=== PATIENT | female | born 1990 | race African-American/Black ===

== ENCOUNTER 2017-10-07 03:41 | Inpatient (IN) | payer SELFPAY ==
[2017-10-07 04:38] VITALS: BP 121/75
[2017-10-07 05:23] LABS: ABS Basophils 0 10^3/ul (0-0.2); ABS Eosinophils 0.1 10^3/ul (0-0.6); ABS Lymphocytes 2.5 10^3/ul (1.0-4.8); ABS Monocytes 1.1 10^3/ul (0-0.8); ABS Neutrophils 8.9 10^3/ul (1.5-7.7); ABS Nucleated RBC 0 10^3/ul; Eosinophil % 0.8 % (0-6); Hematocrit 31 % (35-47); Hemoglobin 10.3 g/dl (12.0-16.0); Lymphocyte % 19.6 % (25-47); Mean Corpuscular HGB Conc 33 g/dl (31-36); Mean Corpuscular Hemoglobin 30 pg (27-31); Mean Corpuscular Volume 91 fL (80-97); Mean Platelet Volume 10.2 um3 (7.4-10.4); Nucleated Red Blood Cells % 0.1; Platelet Count 164 10^3/ul (150-450); Red Blood Count 3.41 10^6/ul (4.00-5.40); Red Cell Distribution Width 13 % (10.5-15); White Blood Count 12.6 10^3/ul (3.5-10.8)
[2017-10-07] MEDS ORDERED: OBEPIDURAL* 250 ML EPIDURAL ONE (05:30)
[2017-10-07] MEDS ORDERED: Penicillin G Potassium IV* 5,000,000 UNITS in NS 0.9% 100 ML* 100 ML IVPB ONE (05:32)
--- NOTE | 2017-10-07 05:38 | HP ---
General Information - Reason for Visit Pt c/o contractions every 3-5min. No LOF or VB. Good FM. Has had care in [place] and then [place] until she moved here 1wk ago. They tried to call several places but weren't able to get an appt scheduled yet. Denies complications with this . - General Information Maternal Age: 27 Grav: 6 Para: 5 SAB: 0 IEA: 0 Estimated Due Date: 10/29/17 Determined By: LMP Maternal Blood Type and Rh: AB Positive - Results this Serology/RPR Result: Non-Reactive Rubella Result: Immune HBsAg Result: Negative HIV Result: Negative GBS Culture Result: Positive Past Medical History Delivery History: See Records Pertinent Past Medical History: Non-Contributory Pertinent Past Surgical History: See Records - Cone biopsy Pertinent Family History: Non-Contributory - Antepartal Records Antepartal Records: Reviewed, Uncomplicated Review of Systems Constitutional: Comfortable CV Complaint: No Respiratory: Shortness of Breath: No Gastrointestinal: No Nausea/Vomiting Genitourinary: No Bleeding, No Leaking Fluid Musculoskeletal: Contractions Movement: Normal Exam Allergies/Adverse Reactions: Allergies No Known Allergies Allergy (Verified 10/07/17 04:38) Vital Signs 10/07/17 04:37 Temperature 98.2 F Pulse Rate 84 Respiratory 18 Rate Blood Pressure 121/75 (mmHg) O2 Sat by Pulse 100 Oximetry Lab Values - Entire Visit: Laboratory Tests 10/07/17 05:00 WBC 12.6 H RBC 3.41 L Hgb 10.3 L Hct 31 L MCV 91 MCH 30 MCHC 33 RDW 13 Plt Count 164 MPV 10.2 Neut % (Auto) 70.8 Lymph % (Auto) 19.6 L [place] % (Auto) 8.5 H Eos % (Auto) 0.8 Baso % (Auto) 0.3 Absolute Neuts (auto) 8.9 H Absolute Lymphs (auto) 2.5 Absolute Monos (auto) 1.1 H Absolute Eos (auto) 0.1 Absolute Basos (auto) 0 Absolute Nucleated RBC 0 Nucleated RBC % 0.1 - Measurements Height: 5 ft Weight: 157 lb Weight in lbs: 157.454558 Body Mass Index (BMI): 30.7 Pre- Weight: 119 lb Weight Gained This : 38 lbs and 0 ozs - Exam Breast: Breast Exam Deferred Extremities: No Edema Heart: Normal Rhythm/Heart Sounds HEENT: No Significant Findings - Abdominal Exam Abdomen Exam: Non-Tender - Ultrasound/Biophysical Profile Ultrasound Status: Not Done Targeted Exam Findings Cervical Exam: 1cm Effacement: 90% Station: +1 - exam by RN Membrane Status: Intact EFM Findings - External Monitor Findings Baseline Heart Rate: 140 External Monitor Findings: Accelerations Present, No Pattern of Variable or Late Decelerations, Variability Moderate, Baseline Stable Contractions: Regular - q2-4 Assessment/Plan - Assessment @36.6wks GA in early labor. H/o fast labors and PTD x3. GBS+ - Obstetrical Risk Factors Obstetrical Risk Factors: GBS Positive - Plan Plan: Observe
[2017-10-07] MEDS ORDERED: EPHEDrine (Pressors)* 50 MG/ML VIAL IV PUSH PRN ×2 (05:58)
[2017-10-07] MEDS ORDERED: Phenylephrine IV* 40 MCG/ML 10 ML SYRINGE IV PUSH PRN ×2 (05:58)
[2017-10-07] MEDS ORDERED: Famotidine TAB* 20 MG PO PRN (05:58)
[2017-10-07] MEDS ORDERED: Sodium Citrate/Citric Acid* 15 ML UDC PO PRN (05:58)
[2017-10-07] MEDS ORDERED: OBEPIDURAL* 250 ML EPIDURAL SCH (06:00)
[2017-10-07] MEDS ORDERED: Acetaminophen TAB* 325 MG PO ONE (15:53)
[2017-10-07] MEDS ORDERED: Acetaminophen TAB* 325 MG ONE (15:56)
--- NOTE | 2017-10-07 17:24 | PN ---
L&D Outpatient: Visit - Reproductive Information Gestational Age: 37.3 : 6 Para: 5 - Reason for Visit Visit Reason: See H&P. This is a discharge note. Pt was admitted due to significant pain with contraction and descent of head with h/o fast labors. She received an epidural and then her contractions spaced out and eventually went away. Cervix remained unchanged over many hours. - Antepartal Records Antepartal Record: Reviewed, Uncomplicated - Patient History Patient History Significant: No Review of Systems Constitutional: Comfortable CV Complaint: No Respiratory: Shortness of Breath: No Gastrointestinal: No Nausea/Vomiting Genitourinary: No Dysuria, No Leaking Fluid, Spotting Musculoskeletal: Back Pain - constant Movement: Normal L&D Outpatient: Exam Vitals - Most Recent: Vital Signs: Temp Pulse Resp BP Pulse Ox 98.2 F 84 18 121/75 100 10/07/17 04:37 10/07/17 04:37 10/07/17 04:37 10/07/17 04:37 10/07/17 04:37 Lab Values - Entire Visit: Laboratory Tests 10/07/17 10/07/17 05:00 05:00 WBC 12.6 H RBC 3.41 L Hgb 10.3 L Hct 31 L MCV 91 MCH 30 MCHC 33 RDW 13 Plt Count 164 MPV 10.2 Neut % (Auto) 70.8 Lymph % (Auto) 19.6 L [place] % (Auto) 8.5 H Eos % (Auto) 0.8 Baso % (Auto) 0.3 Absolute Neuts (auto) 8.9 H Absolute Lymphs (auto) 2.5 Absolute Monos (auto) 1.1 H Absolute Eos (auto) 0.1 Absolute Basos (auto) 0 Absolute Nucleated RBC 0 Nucleated RBC % 0.1 Blood Type AB Positive Antibody Screen Negative - Cervical Exam Cervical Exam: unchanged @2cm - Abdominal Exam Abdomen Exam: Non-Tender - Membranes Membrane Status: Intact - Ultrasound/Biophysical Profile Ultrasound Status: Not Done EFM Findings - External Monitor Findings Baseline Heart Rate: 135 External Monitor Findings: Accelerations Present, No Pattern of Variable or Late Decelerations, Variability Moderate, Baseline Stable Contractions: None L&D Outpatient: Asses/Plan Assessment: admitted with suspected early labor and received epidural. Contractions stopped completely. Cervix unchanged and pt comfortable going home. - Discharge Diagnosis Discharge Diagnosis: False Labor Plan: Discharge Home in Stable Condition, Written Instructions Given and Reviewed with Patient
== END 2017-10-07 16:55 | disposition home or self-care (01) | DRG 780 ==
LOC: MCHOBOUT 03:41 → MCHOB 04:55
PROVIDERS: ADMIT Obstetrics & Gynecology; ATTEND Obstetrics & Gynecology
PROC: 00HU33Z Insertion of Infusion Device into Spinal Canal, Percutaneous Approach (ICD-10-PCS; principal; 2017-10-07)
PROC: 3E0R3BZ Introduction of Anesthetic Agent into Spinal Canal, Percutaneous Approach (ICD-10-PCS; 2017-10-07)
DX: O47.03 False labor before 37 completed weeks of gestation, third trimester (principal); Z3A.36 36 weeks gestation of pregnancy
CPT/HCPCS: 36415; 85025; 86850; 86900; 86901; 99284; A9270-GY; J2540

== ENCOUNTER → 2017-10-16 23:03 | Emergency (ER) | payer OTHER ==
[2017-10-16 23:14] VITALS: BP 109/72
--- NOTE | 2017-10-16 23:49 | ED ---
Upper Extremity Pain - HPI Summary HPI Summary: This is bong Rivera documenting for attending Jeremy Sood MD. This patient is a 27 year old F presenting to [facility] accompanied by her family with a chief complaint of a ring stuck on her left ring finger. The patient rates the pain 0/10 in severity. Patient has no other complaints at this time. - History of Current Complaint Chief Complaint: EDGeneral Stated Complaint: FINGER DISCOMFORT Hx Obtained From: Patient Onset/Duration: Still Present Timing: Constant Severity Initially: Mild Severity Currently: Mild Associated Signs & Symptoms: Positive: Negative - fever - Allergies/Home Medications Allergies/Adverse Reactions: Allergies Allergy/AdvReac Type Severity Reaction Status Date / Time No Known Allergies Allergy Verified 10/07/17 04:38 PMH/Surg Hx/FS Hx/Imm Hx Endocrine/Hematology History: Denies: Hx Diabetes, Hx Sickle Cell Disease Cardiovascular History: Denies: Hx Embolism, Hx Hypertension Respiratory History: Denies: Hx Chronic Obstructive Pulmonary Disease (COPD), Hx Cystic Fibrosis, Hx Lung Cancer Infectious Disease History: No Infectious Disease History: Denies: Traveled Outside the [place] in Last 30 Days - Family History Known Family History: Negative: Hypertension, Diabetes - Social History Lives: With Family Alcohol Use: None Substance Use Type: Reports: None Smoking Status (MU): Former Smoker Review of Systems Negative: Fever Negative: Abdominal Pain Positive: Other - finger stuck on hand All Other Systems Reviewed And Are Negative: Yes Physical Exam - Summary Physical Exam Summary: Appearance: Well appearing, no pain distress Skin: warm, dry, reflects adequate perfusion Head/face: normal Eyes: EOMI, YASIR ENT: normal Neck: supple, non-tender Respiratory: CTA, breath sounds present Cardiovascular: RRR, pulses symmetrical Abdomen: non-tender, soft Bowel: present Musculoskeletal: strength/ROM intact, the ring finger on the left hand is swollen and TTP. Neuro: normal, sensory motor intact, A&Ox3 Triage Information Reviewed: Yes Vital Signs On Initial Exam: Initial Vitals Temp Pulse Resp BP Pulse Ox 97.7 F 98 18 109/72 99 10/16/17 23:10 10/16/17 23:10 10/16/17 23:10 10/16/17 23:10 10/16/17 23:10 Vital Signs Reviewed: Yes Diagnostics - Vital Signs Vital Signs Temp Pulse Resp BP Pulse Ox 10/16/17 23:10 97.7 F 98 18 109/72 99 - Laboratory Lab Statement: Any lab studies that have been ordered have been reviewed, and results considered in the medical decision making process. Course/Dx - Course Assessment/Plan: This patient is a 27 year old F presenting to [facility] accompanied by her family with a chief complaint of a ring stuck on her left ring finger. The patient rates the pain 0/10 in severity. Patient has no other complaints at this time. The ring was removed and the patient is feeling better. She will be discharged and follow up with PCP with any related concerns. The patient is agreeable with this plan. - Diagnoses Provider Diagnoses: Finger pain, left Discharge - Sign-Out/Discharge Documenting (check all that apply): Patient Departure - Discharge Plan Condition: Stable Disposition: HOME Referrals: No Primary Care Phys,NOPCP [Primary Care Provider] - Additional Instructions: RETURN TO THE EMERGENCY DEPARTMENT FOR CHANGING OR WORSENING SYMPTOMS - Billing Disposition and Condition Condition: STABLE Disposition: Home
== END | disposition home or self-care (01) ==
LOC: ED 23:03
DX: M79.644 Pain in right finger(s) (principal); Z87.891 Personal history of nicotine dependence
CPT/HCPCS: 99281

== ENCOUNTER 2017-10-22 20:15 | Inpatient (IN) | payer OTHER ==
[2017-10-22] MEDS ORDERED: Penicillin G Potassium IV* 5,000,000 UNITS in NS 0.9% 100 ML* 100 ML IVPB ONE (21:17)
--- NOTE | 2017-10-22 21:38 | HP ---
General Information - General Information Maternal Age: 27 Grav: 6 Para: 5 SAB: 0 IEA: 0 Estimated Due Date: 10/29/17 Determined By: LMP Maternal Blood Type and Rh: AB Positive - Results this Serology/RPR Result: Non-Reactive Rubella Result: Immune HBsAg Result: Negative HIV Result: Negative GBS Culture Result: Positive Past Medical History Delivery History: Hx Complicated Vaginal Delivery - previous delivery x 3 Pertinent Past Medical History: See Records - cone biopsy Pertinent Past Surgical History: See Records Pertinent Family History: Non-Contributory - Antepartal Records Antepartal Records: Reviewed, Uncomplicated Review of Systems Constitutional: Comfortable CV Complaint: No Respiratory: Shortness of Breath: No Genitourinary: Leaking Fluid, No Bleeding Musculoskeletal: No Complaint Neurological: No Headache Movement: Normal Exam Allergies/Adverse Reactions: Allergies No Known Allergies Allergy (Verified 10/22/17 21:10) Lab Values - Entire Visit: Laboratory Tests 10/22/17 20:45 Vag Amniotic Fld Detect Positive - Measurements Height: 5 ft Weight: 161 lb Weight in lbs: 161.411674 Body Mass Index (BMI): 31.4 Pre- Weight: 118 lb 15.983 oz Weight Gained This : 42.001 lbs and 0.001 ozs - Exam Breast: Breast Exam Deferred Extremities: No Edema Heart: Normal Rhythm/Heart Sounds HEENT: No Significant Findings Lungs: Clear Bilaterally Rectal: Rectal Exam Deferred Reflexes: DTR 2+ Targeted Exam Findings Cervical Exam: 2cm - in office today / membranes stripped Presenting Part: Vertex Membrane Status: Leaking Amniotic Fluid Evaluation: Positive ROM Plus EFM Findings - External Monitor Findings Baseline Heart Rate: 130 External Monitor Findings: Accelerations Present, Variability Moderate Contractions: Irregular Assessment/Plan - Assessment premature rupture of membranes - Obstetrical Risk Factors Obstetrical Risk Factors: GBS Positive - Plan Plan: Induction, Antibiotic Prophylaxis, Admit - Anticipate Vaginal Delivery
[2017-10-22] MEDS ORDERED: Oxytocin in LR* 20 UNITS/1,000 ML BAG IVPB SCH (22:00)
[2017-10-22 22:14] LABS: ABS Basophils 0.1 10^3/ul (0-0.2); ABS Eosinophils 0.1 10^3/ul (0-0.6); ABS Lymphocytes 2.5 10^3/ul (1.0-4.8); ABS Monocytes 0.8 10^3/ul (0-0.8); ABS Neutrophils 6.7 10^3/ul (1.5-7.7); ABS Nucleated RBC 0 10^3/ul; Eosinophil % 0.9 % (0-6); Hematocrit 31 % (35-47); Hemoglobin 10.6 g/dl (12.0-16.0); Lymphocyte % 24.9 % (25-47); Mean Corpuscular HGB Conc 34 g/dl (31-36); Mean Corpuscular Hemoglobin 31 pg (27-31); Mean Corpuscular Volume 90 fL (80-97); Mean Platelet Volume 10.3 um3 (7.4-10.4); Nucleated Red Blood Cells % 0.3; Platelet Count 178 10^3/ul (150-450); Red Cell Distribution Width 14 % (10.5-15); White Blood Count 10.1 10^3/ul (3.5-10.8)
[2017-10-22] MEDS ORDERED: OBEPIDURAL* 250 ML EPIDURAL ONE (23:37)
[2017-10-23] MEDS ORDERED: EPHEDrine (Pressors)* 50 MG/ML VIAL IV PUSH PRN (00:06)
[2017-10-23] MEDS ORDERED: Famotidine TAB* 20 MG PO PRN (00:06)
[2017-10-23] MEDS ORDERED: Sodium Citrate/Citric Acid* 15 ML UDC PO PRN (00:06)
[2017-10-23] MEDS ORDERED: Phenylephrine IV* 40 MCG/ML 10 ML SYRINGE IV PUSH PRN (00:06)
[2017-10-23] MEDS ORDERED: OBEPIDURAL* 250 ML EPIDURAL SCH (01:00)
[2017-10-23] MEDS: Penicillin G Potassium IV* 2,500,000 UNITS in NS 0.9% 100 ML* 100 ML IVPB SCH ×2 (02:17→08:41)
[2017-10-23] MEDS ORDERED: Tetan/Diph/Pertus SYR(Tdap)* 0.5 ML SYR(BOOSTRIX) use SYR IM ONE (02:59)
[2017-10-23] MEDS ORDERED: Dibucaine 1% 28.35 GM TUBE PR PRN (02:59)
[2017-10-23] MEDS ORDERED: Acetaminophen TAB* 325 MG PO PRN (02:59)
[2017-10-23] MEDS ORDERED: Witch Hazel PAD* JAR TOPICAL PRN (02:59)
[2017-10-23] MEDS ORDERED: Glycerin ADULT SUPP PR PRN (02:59)
[2017-10-23] MEDS ORDERED: Oxytocin in LR* 20 UNITS/1,000 ML BAG IVPB SCH (03:00)
[2017-10-23] MEDS ORDERED: Simethicone TAB* 80 MG TAB.CHEW PO SCH (08:30)
[2017-10-23] MEDS: Docusate CAP* 100 MG PO SCH ×3 (08:40→20:33)
[2017-10-23] MEDS: Ibuprofen TAB* 600 MG PO PRN ×3 (10:16→23:26)
[2017-10-23] MEDS ORDERED: oxyCODONE/Acetamin 5/325 MG* TAB ONE (11:44)
[2017-10-23] MEDS: oxyCODONE/Acetamin 5/325 MG* TAB PO PRN (20:33)
[2017-10-24] MEDS: Ibuprofen TAB* 600 MG PO PRN ×3 (08:14→20:04)
[2017-10-24] MEDS: Docusate CAP* 100 MG PO SCH ×3 (08:14→20:04)
[2017-10-24] MEDS ORDERED: Ferrous Gluconate TAB* 324 MG TAB PO SCH (09:00)
[2017-10-24] MEDS: oxyCODONE/Acetamin 5/325 MG* TAB PO PRN ×2 (15:28→23:47)
[2017-10-25 09:20] VITALS: BP 140/86
[2017-10-25] MEDS: Ibuprofen TAB* 600 MG PO PRN (09:40)
[2017-10-25] MEDS: Docusate CAP* 100 MG PO SCH (09:40)
== END 2017-10-25 12:45 | disposition home or self-care (01) | DRG 775 ==
LOC: MCHOBOUT 20:15 → MCHOB 21:18
PROVIDERS: ADMIT Obstetrics & Gynecology; ATTEND Obstetrics & Gynecology
PROC: 10E0XZZ Delivery of Products of Conception, External Approach (ICD-10-PCS; principal; 2017-10-22)
PROC: 4A1HX4Z Monitoring of Products of Conception, Cardiac Electrical Activity, External Approach (ICD-10-PCS; 2017-10-22)
DX: O42.02 Full-term premature rupture of membranes, onset of labor within 24 hours of rupture (principal); O99.824 Streptococcus B carrier state complicating childbirth; Z37.0 Single live birth; Z3A.39 39 weeks gestation of pregnancy; Z87.891 Personal history of nicotine dependence
CPT/HCPCS: 84112; 85025; 86850; 86900; 86901; A9270-GY; J2540

== ENCOUNTER 2017-11-01 09:21 | Emergency (ER) | payer OTHER ==
[2017-11-01] MEDS ORDERED: NS 0.9% 1000 ML* 1,000 ML IV ONE (10:25)
--- NOTE | 2017-11-01 11:08 | ED ---
Abdominal Pain/Female - HPI Summary HPI Summary: This is scribe Kvng Byers documenting for attending Yazan Vargas MD. This patient is a 27 year old F presenting to [facility] with a chief complaint of abdominal pain. The patient rates the pain 9/10 in severity. Patient reports yellow vaginal discharge that smells bad, cold sweats the last two nights, constipation, and headache. She is 1 week post vaginal delivery of her 6th child without any complications. Her last bowel movement was yesterday and normal. I, Dr. Vargas, personally performed the services described in this documentation as scribed in my presence, and it is both accurate and complete. - History of Current Complaint Chief Complaint: EDAbdPain Stated Complaint: ABD PAIN/HEADACHES Time Seen by Provider: 11/01/17 10:12 Hx Obtained From: Patient Onset/Duration: Sudden Onset, Lasting Days, Still Present Timing: Constant Severity Initially: Severe Severity Currently: Severe Pain Intensity: 9 Pain Scale Used: 0-10 Numeric Location: Other - Lower abdomen Aggravating Factor(s): Nothing Alleviating Factor(s): Nothing Associated Signs and Symptoms: Positive: Constipation, Vaginal Discharge - Yellow and smells bad, Other: - Cold sweats the last two nights, [place] Allergies/Adverse Reactions: Allergies Allergy/AdvReac Type Severity Reaction Status Date / Time No Known Allergies Allergy Verified 11/01/17 09:27 PMH/Surg Hx/FS Hx/Imm Hx Endocrine/Hematology History: Denies: Hx Diabetes, Hx Sickle Cell Disease Cardiovascular History: Denies: Hx Embolism, Hx Hypertension Respiratory History: Denies: Hx Chronic Obstructive Pulmonary Disease (COPD), Hx Cystic Fibrosis, Hx Lung Cancer - Immunization History Immunizations Up to Date: Yes Infectious Disease History: No Infectious Disease History: Denies: Traveled Outside the [place] in Last 30 Days - Family History Known Family History: Negative: Hypertension, Diabetes - Social History Alcohol Use: None Substance Use Type: Reports: None Smoking Status (MU): Current Some Day Smoker Review of Systems Positive: Other - Cold sweats the last two nights Positive: Abdominal Pain, Other - Constipation Positive: other - Yellow vaginal discharge that smells bad Positive: Headache All Other Systems Reviewed And Are Negative: Yes Physical Exam - Summary Physical Exam Summary: VITAL SIGNS: Reviewed. GENERAL: Patient is a well-developed and nourished female who is lying comfortable in the stretcher. Patient is not in any acute respiratory distress. HEAD AND FACE: Normocephalic and atraumatic. EYES: PERRLA, EOMI x 2, No injected conjunctiva. EARS: Hearing grossly intact. Ear canals and tympanic membranes are WNL. MOUTH: Oropharynx within normal limits. NECK: Supple, trachea is midline, no adenopathy, no JVD. CHEST: Symmetric, no tenderness at palpation LUNGS: Clear to auscultation bilaterally. No wheezing or crackles. CVS: RRR, S1 and S2 present, no murmurs or gallops appreciated. ABDOMEN: Lower abdomen is distended and tender. Positive bowel sounds. No rebound no guarding, and no masses palpated. No abdominal bruit or pulsations. EXTREMITIES: FROM in all major joints, no edema, no cyanosis or clubbing. NEURO: Alert and oriented x 3. No acute neurological deficits. Speech is normal. SKIN: Dry and warm Triage Information Reviewed: Yes Vital Signs On Initial Exam: Initial Vitals Temp Pulse Resp BP Pulse Ox 98.6 F 62 16 137/107 98 11/01/17 09:23 11/01/17 09:23 11/01/17 09:23 11/01/17 09:23 11/01/17 09:23 Vital Signs Reviewed: Yes Diagnostics - Vital Signs Vital Signs Temp Pulse Resp BP Pulse Ox 11/01/17 09:23 98.6 F 62 16 137/107 98 - Laboratory Result Diagrams: 11/01/17 11:01 11/01/17 11:01 Lab Statement: Any lab studies that have been ordered have been reviewed, and results considered in the medical decision making process. - Ultrasound No standard instances Ultrasound Interpretation Completed By: Radiologist - Vaginal US 11:55 reveals: Given the clinical context consider retained products of conception. ED Physician has reviewed this imaging report. - EKG 1 Cardiac Rate: Bradycardia - 43 BPM EKG Rhythm: Sinus Rhythm EKG Interpretation: 10:28. No ST elevations. Abdominal Pain Fem Course/Dx - Course Course Of Treatment: This patient is a 27 year old F presenting to [facility] with a chief complaint of abdominal pain. The patient rates the pain 9/10 in severity. Patient reports yellow vaginal discharge that smells bad, cold sweats the last two nights, constipation, and headache. She is 1 week post vaginal delivery of her 6th child without any complications. Her last bowel movement was yesterday and normal. Labs without significant abnormality. Urinalysis is contaminated. Therefore we will send for urine cultures. Vaginal US revealed: Given the clinical context consider retained products of conception. At this point we are waiting for Dr. Boles to see the patient. Patient is not willing to wait. She protests that she is feeling better and she requests pain medications. She will follow up with her PAINTER AND DECORATOR tomorrow morning. Therefore the patient will be given a prescription for Narco and Miralax. She is discharged home with recommendations to return home to the ED if symptoms worsen. The patient understands and agrees. At this time, the patient is hemodynamically stable, alert and oriented x3. Dx is lower abdominal pain. - Diagnoses Differential Diagnosis: Positive: Constipation, Urinary Tract Infection Provider Diagnoses: Lower abdominal pain - Provider Notifications Discussed Care Of Patient With: Mirian Boles - PAINTER AND DECORATOR Time Discussed With Above Provider: 10:36 Instructed by Provider To: Other - Dr. Boles advised an US be done Discharge - Sign-Out/Discharge Documenting (check all that apply): Patient Departure - D/C - Discharge Plan Condition: Stable Disposition: HOME Prescriptions: oxyCODONE TAB* [Roxycodone TAB 5 mg*] 5 mg PO Q6H PRN #12 tab MDD 4 PRN Reason: Pain Polyethylene Glycol 3350* [Miralax*] 17 gm PO DAILY #12 packet Patient Education Materials: Abdominal Pain (ED) Referrals: No Primary Care Phys,NOPCP [Primary Care Provider] - 3 Days (Follow up with [facility] or your PCP in 3 days.) Additional Instructions: FOLLOW UP WITH YOUR PRIMARY CARE PROVIDER OR [facility] WITHIN ONE WEEK FOR HIGH BLOOD PRESSURE NOTED TODAY. RETURN TO THE EMERGENCY DEPARTMENT FOR CHANGING OR WORSENING SYMPTOMS. - Billing Disposition and Condition Condition: STABLE Disposition: Home
[2017-11-01 11:19] LABS: ABS Basophils 0.1 10^3/ul (0-0.2); ABS Eosinophils 0.1 10^3/ul (0-0.6); ABS Lymphocytes 2.1 10^3/ul (1.0-4.8); ABS Monocytes 0.5 10^3/ul (0-0.8); ABS Neutrophils 5.9 10^3/ul (1.5-7.7); ABS Nucleated RBC 0 10^3/ul; Hematocrit 37 % (35-47); Hemoglobin 12.5 g/dl (12.0-16.0); Lymphocyte % 24.3 % (25-47); Mean Corpuscular HGB Conc 33 g/dl (31-36); Mean Corpuscular Hemoglobin 30 pg (27-31); Mean Corpuscular Volume 90 fL (80-97); Mean Platelet Volume 9.8 um3 (7.4-10.4); Nucleated Red Blood Cells % 0; Platelet Count 237 10^3/ul (150-450); Red Blood Count 4.14 10^6/ul (4.00-5.40); Red Cell Distribution Width 13 % (10.5-15); White Blood Count 8.7 10^3/ul (3.5-10.8)
--- NOTE | 2017-11-01 11:58 | RAD ---
Indication: One month status post vaginal delivery. Persistent bleeding. Comparison: No relevant prior exams available on the [facility] PACS for comparison. Technique: Transvaginal and transabdominal technique pelvic ultrasound performed. Report: 12.3 x 7.9 x 9.6 cm anteverted uterus. Irregularly thickened 22 mm thick endometrium with heterogeneous echogenicity. No compelling intrinsic vascularity at the endometrial on Doppler. Nonetheless given the clinical context consider retained products of conception. Only trace free fluid visualized in the cul-de-sac. The RIGHT ovary could not be visualized. 2.9 x 1.8 x 2.2 cm LEFT ovary with documented vascular flow is unremarkable. No extra ovarian adnexal region lesions evident. IMPRESSION: #. Given the clinical context consider retained products of conception.
[2017-11-01 12:25] LABS: Urine Appearance Clear; Urine Blood 3+ (Negative); Urine Color Yellow; Urine Ketones Negative (Negative); Urine Protein Negative (Negative); Urine Red Blood Cell 2+(6-10/hpf) (Absent); Urine Specific Gravity 1.019 (1.010-1.030); Urine Urobilinogen Negative (Negative); Urine White Blood Cell Trace(0-5/hpf) (Absent)
[2017-11-01] MEDS ORDERED: Ketorolac INJ* 30 MG/ML 1 ML VIAL IV PUSH ONE (12:33)
[2017-11-01 15:03] VITALS: BP 162/105
== END 2017-11-01 15:24 | disposition home or self-care (01) ==
LOC: ED 09:21
DX: R10.30 Lower abdominal pain, unspecified (principal); N89.8 Other specified noninflammatory disorders of vagina; K59.00 Constipation, unspecified; R51 Headache; Z72.0 Tobacco use; R00.1 Bradycardia, unspecified
CPT/HCPCS: 36415; 76830; 80053; 81003; 81015; 83605; 83690; 85025; 86140; 87040; 87086; 93005; 96374; 99282; J1885

== ENCOUNTER 2017-11-20 18:03 | Emergency (ER) | payer OTHER ==
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
[2017-11-20 19:15] LABS: ABS Basophils 0.1 10^3/ul (0-0.2); ABS Eosinophils 0.2 10^3/ul (0-0.6); ABS Monocytes 0.5 10^3/ul (0-0.8); ABS Neutrophils 3.9 10^3/ul (1.5-7.7); ABS Nucleated RBC 0 10^3/ul; Eosinophil % 2.6 % (0-6); Hematocrit 39 % (35-47); Mean Corpuscular HGB Conc 33 g/dl (31-36); Mean Corpuscular Hemoglobin 29 pg (27-31); Mean Corpuscular Volume 89 fL (80-97); Mean Platelet Volume 8.9 um3 (7.4-10.4); Nucleated Red Blood Cells % 0.1; Platelet Count 275 10^3/ul (150-450); Red Blood Count 4.43 10^6/ul (4.00-5.40); Red Cell Distribution Width 14 % (10.5-15); White Blood Count 7.7 10^3/ul (3.5-10.8)
[2017-11-20 19:29] LABS: EGFR Non-African American 73.6 (>60)
[2017-11-20 19:33] LABS: Urine Appearance Clear; Urine Blood 2+ (Negative); Urine Color Straw; Urine Ketones Negative (Negative); Urine Protein Negative (Negative); Urine Red Blood Cell Trace(0-2/hpf) (Absent); Urine Specific Gravity 1.004 (1.010-1.030); Urine Urobilinogen Negative (Negative); Urine White Blood Cell Trace(0-5/hpf) (Absent)
[2017-11-20] MEDS ORDERED: cloNIDine TAB* 0.1 MG PO ONE (21:44)
[2017-11-20 23:05] VITALS: BP 136/77
== END 2017-11-20 22:50 | disposition home or self-care (01) ==
LOC: ED 18:03
DX: F39 Unspecified mood [affective] disorder (principal); I10 Essential (primary) hypertension; Z72.0 Tobacco use
CPT/HCPCS: 36415; 80053; 80307; 80320; 80329; 81003; 81015; 82550; 84443; 84702; 85025; 87086; 99285; A9270-GY; G0480

== ENCOUNTER 2018-02-14 10:33 | Emergency (ER) | payer OTHER ==
--- NOTE | 2018-02-14 11:36 | ED ---
Asthma - HPI Summary HPI Summary: Pt is a 27 y/o female who presents to the ED c/o SOB. 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 Pt states yesterday while working with the chemicals she had SOB, MERIDA, lightheadedness, and visual changes. She had to bend over in order to catch her breath, and states this produced some chest tightness. Pt was diagnosed with asthma over a year ago, but never followed up or got an inhaler. She is a daily smoker, and states that she is so SOB she can t smoke. Pt does not have a PCP yet. - History of Current Complaint Chief Complaint: EDAsthma Stated Complaint: DIFFICULTY BREATHING Time Seen by Provider: 02/14/18 11:20 Hx Obtained From: Patient Onset/Duration: Gradual Onset, Lasting Days - 1, Resolved Current Severity: Moderate Pain Intensity: 3 Pain Scale Used: 0-10 Numeric Location/Character: Other - SOB Aggravating Symptoms: Smoke, Other: - cleaning chemicals Associated Signs and Symptoms: Positive: Shortness of Breath, Other - lightheadedness, MERIDA, chest tightness - Allergy/Home Medications Allergies/Adverse Reactions: Allergies Allergy/AdvReac Type Severity Reaction Status Date / Time No Known Allergies Allergy Verified 02/14/18 10:48 PMH/Surg Hx/FS Hx/Imm Hx Endocrine/Hematology History: Denies: Hx Diabetes, Hx Sickle Cell Disease Cardiovascular History: Reports: Hx Hypertension Denies: Hx Embolism Respiratory History: Reports: Hx Asthma Denies: Hx Chronic Obstructive Pulmonary Disease (COPD), Hx Cystic Fibrosis, Hx Lung Cancer Psychiatric History: Reports: Hx Post Traumatic Stress Disorder Denies: Hx Eating Disorder, Hx of Violent Episodes Against Others - Surgical History Surgery Procedure, Year, and Place: Cone biopsy - Immunization History Immunizations Up to Date: Yes Infectious Disease History: No Infectious Disease History: Denies: Traveled Outside the [place] in Last 30 Days - Family History Known Family History: Positive: Other - no known history of suicide in the family Negative: Hypertension, Diabetes - Social History Alcohol Use: None Hx Substance Use: Yes Substance Use Type: Reports: Marijuana Hx Tobacco Use: Yes Smoking Status (MU): Current Some Day Smoker Type: Cigarettes Amount Used/How Often: 3-4 cigs/day Review of Systems Eyes: Other - Visual changes Positive: Other - chest tightness Positive: Shortness Of Breath Neurological: Other - Lightheadedness Positive: Headache All Other Systems Reviewed And Are Negative: Yes Physical Exam - Summary Physical Exam Summary: Appearance: The patient is well-nourished in no acute distress and in no acute pain. Skin: The skin is warm and dry and skin color reflects adequate perfusion. HEENT: The head is normocephalic and atraumatic. The pupils are equal and reactive. The conjunctivae are clear and without drainage. Nares are patent and without drainage. Mouth reveals moist mucous membranes and the throat is without erythema and exudate. The external ears are intact. The ear canals are patent and without drainage. The tympanic membranes are intact. Neck: The neck is supple with full range of motion and non-tender. There are no carotid bruits. There is no neck vein distension. Respiratory: Chest is non-tender. Lungs are clear to auscultation and breath sounds are symmetrical and equal. Cardiovascular: Heart is regular rate and rhythm. There is no murmur or rub auscultated. There is no peripheral edema and pulses are symmetrical and equal. Abdomen: The abdomen is soft and non-tender. There are normal bowel sounds heard in all four quadrants and there is no organomegaly palpated. Musculoskeletal: There is no back tenderness noted. Extremities are non-tender with full range of motion. There is good capillary refill. There is no peripheral edema or calf tenderness elicited. Neurological: Patient is alert and oriented to person, place and time. The patient has symmetrical motor strength in all four extremities. Cranial nerves are grossly intact. Deep tendon reflexes are symmetrical and equal in all four extremities. Psychiatric: The patient has an appropriate affect and does not exhibit any anxiety or depression. Triage Information Reviewed: Yes Vital Signs On Initial Exam: Initial Vitals Temp Pulse Resp BP Pulse Ox 97.7 F 93 18 137/80 99 02/14/18 10:45 02/14/18 10:45 02/14/18 10:45 02/14/18 10:45 02/14/18 10:45 Vital Signs Reviewed: Yes Diagnostics - Vital Signs Vital Signs Temp Pulse Resp BP Pulse Ox 02/14/18 10:45 97.7 F 93 18 137/80 99 - Laboratory Lab Statement: Any lab studies that have been ordered have been reviewed, and results considered in the medical decision making process. Asthma Course/Dx - Course Course Of Treatment: Ms. Mendoza was diagnosed about a year and a half ago with asthma after pulmonary function tests in [place]. She did not follow-up as she was not having any problem and moved here recently. She took a new job, is working around chemicals and has noticed some difficulty breathing and especially pressure in her chest when bending over while at work. Sometimes she feels a little dizzy. She is asymptomatic on arrival here, vitals are stable and she is nontoxic in appearance. Her lungs were clear. I will temporize her with an albuterol MDI and get her referral to [facility] so that she can get further treatment and evaluation. - Diagnoses Provider Diagnoses: Asthma Discharge - Sign-Out/Discharge Documenting (check all that apply): Patient Departure - Dischargge - Discharge Plan Condition: Stable Disposition: HOME Prescriptions: Albuterol HFA INHALER* [Ventolin HFA Inhaler*] 1 puff INH Q4H PRN #1 mdi PRN Reason: Sob/Wheezing Patient Education Materials: Asthma (ED), How to Stop Smoking (ED) Referrals: [facility] [Outside] (2-3 days) Additional Instructions: RETURN TO THE ED WITH ANY NEW OR WORSENING SYMPTOMS. - Billing Disposition and Condition Condition: STABLE Disposition: Home - Attestation Statements Document Initiated by Scribe: Yes Documenting Scribe: Brenda Eason Provider For Whom Gilles is Documenting (Include Credential): Kar Calvo MD Scribe Attestation: Brenda Landry, scribed for Kar Calvo MD on 02/14/18 at 1153. Scribe Documentation Reviewed: Yes Provider Attestation: The documentation as recorded by the Brenda woody accurately reflects the service I personally performed and the decisions made by me, Kar Calvo MD Status of Scribe Document: Viewed
[2018-02-14 11:47] VITALS: BP 120/74
== END 2018-02-14 11:44 | disposition home or self-care (01) ==
LOC: ED 10:33
DX: J45.909 Unspecified asthma, uncomplicated (principal); I10 Essential (primary) hypertension; F17.210 Nicotine dependence, cigarettes, uncomplicated
CPT/HCPCS: 99282

== ENCOUNTER 2018-02-15 03:28 | Emergency (ER) | payer OTHER ==
[2018-02-15] MEDS ORDERED: Ibuprofen TAB* 600 MG PO ONE (04:07)
[2018-02-15 04:23] LABS: ABS Basophils 0 10^3/ul (0-0.2); ABS Eosinophils 0.1 10^3/ul (0-0.6); ABS Lymphocytes 2.8 10^3/ul (1.0-4.8); ABS Monocytes 0.6 10^3/ul (0-0.8); ABS Neutrophils 5.6 10^3/ul (1.5-7.7); ABS Nucleated RBC 0 10^3/ul; Eosinophil % 1.2 %; Hematocrit 39 % (35-47); Hemoglobin 12.9 g/dl (12.0-16.0); Lymphocyte % 30.4 %; Mean Corpuscular HGB Conc 33 g/dl (31-36); Mean Corpuscular Hemoglobin 29 pg (27-31); Mean Corpuscular Volume 89 fL (80-97); Mean Platelet Volume 9.1 fL (7.4-10.4); Nucleated Red Blood Cells % 0.2; Platelet Count 198 10^3/ul (150-450); Red Blood Count 4.42 10^6/ul (4.00-5.40); Red Cell Distribution Width 14 % (10.5-15); White Blood Count 9.2 10^3/ul (3.5-10.8)
[2018-02-15 04:32] LABS: INR 1.03 (0.77-1.02)
[2018-02-15] MEDS ORDERED: NS 0.9% 1000 ML* 1,000 ML IV ONE (04:49)
--- NOTE | 2018-02-15 04:51 | ED ---
HPI Chest Pain - HPI Summary HPI Summary: A 27 y/o female accompanied by a friend presents to the ED c/o left-sided chest pain. Currently, the patient still experiences chest pain, however, only when she takes deep breaths and moves. In the ED course, the patient has a pulse of 79 BPM, O2 saturation of 98%, and blood pressure of 134/91. According to the patient, she experiences chest pain from taking deep breaths and engages in any movement. The pain started on morning around 1000 which became worse. Some symptoms included cold sweats, lightheadedness and cough (resolved). She denies any nausea, vomiting, dizziness, or fever. No prior heart issues. No control pills. Palpation does not aggravate the symptoms. PMHx of asthma. - History of Current Complaint Chief Complaint: EDChestPainROMI Time Seen by Provider: 02/15/18 03:46 Hx Obtained From: Patient Onset/Duration: Started Days Ago, Still Present, Worse Since Timing: Constant Initial Severity: Severe Current Severity: Severe Pain Intensity: 10 Pain Scale Used: 0-10 Numeric Chest Pain Location: Left Anterior Chest Pain Radiates: No Aggravating Factor(s): Movement, Deep Breaths Alleviating Factor(s): Nothing Associated Signs and Symptoms: Positive: Chest Pain, Shortness of Breath, Lightheadedness, Diaphoresis, Cough. Negative: Dizziness, Fever, Nausea, Vomiting - Allergy/Home Medications Allergies/Adverse Reactions: Allergies Allergy/AdvReac Type Severity Reaction Status Date / Time No Known Allergies Allergy Verified 02/14/18 10:48 PMH/Surg Hx/FS Hx/Imm Hx Endocrine/Hematology History: Denies: Hx Diabetes, Hx Sickle Cell Disease Cardiovascular History: Reports: Hx Hypertension Denies: Hx Embolism Respiratory History: Reports: Hx Asthma Denies: Hx Chronic Obstructive Pulmonary Disease (COPD), Hx Cystic Fibrosis, Hx Lung Cancer Psychiatric History: Reports: Hx Post Traumatic Stress Disorder Denies: Hx Eating Disorder, Hx of Violent Episodes Against Others - Surgical History Surgery Procedure, Year, and Place: Cone biopsy Infectious Disease History: No Infectious Disease History: Denies: Traveled Outside the [place] in Last 30 Days - Family History Known Family History: Positive: Other - no known history of suicide in the family Negative: Hypertension, Diabetes - Social History Alcohol Use: None Hx Substance Use: Yes Substance Use Type: Reports: Marijuana Hx Tobacco Use: Yes Smoking Status (MU): Current Some Day Smoker Type: Cigarettes Amount Used/How Often: 3-4 cigs/day Review of Systems Positive: Skin Diaphoresis. Negative: Fever Positive: Chest Pain Positive: Shortness Of Breath Negative: Vomiting, Nausea Neurological: Other - POSITIVE: Lightheadedness; NEGATIVE: Dizzness All Other Systems Reviewed And Are Negative: Yes Physical Exam - Summary Physical Exam Summary: Appearance: Well appearing, no pain distress Skin: warm, dry, reflects adequate perfusion Head/face: normal Eyes: EOMI, YASIR ENT: normal Neck: supple, non-tender Respiratory: CTA, breath sounds present Cardiovascular: RRR, pulses symmetrical Abdomen: non-tender, soft Musculoskeletal: normal, strength/ROM intact Neuro: normal, sensory motor intact, A&Ox3 Triage Information Reviewed: Yes Vital Signs On Initial Exam: Initial Vitals Temp Pulse Resp BP Pulse Ox 97.7 F 76 20 134/91 98 02/15/18 03:32 02/15/18 03:32 02/15/18 03:32 02/15/18 03:32 02/15/18 03:32 Vital Signs Reviewed: Yes Diagnostics - Vital Signs Vital Signs Temp Pulse Resp BP Pulse Ox 02/15/18 04:00 67 14 100 02/15/18 03:50 80 12 100 02/15/18 03:35 70 134/91 99 02/15/18 03:32 97.7 F 76 20 134/91 98 - Laboratory Lab Results: Lab Results 02/15/18 02/15/18 02/15/18 Range/Units 04:16 04:16 04:16 WBC 9.2 (3.5-10.8) 10^3/ul RBC 4.42 (4.00-5.40) 10^6/ul Hgb 12.9 (12.0-16.0) g/dl Hct 39 (35-47) % MCV 89 (80-97) fL MCH 29 (27-31) pg MCHC 33 (31-36) g/dl RDW 14 (10.5-15) % Plt Count 198 (150-450) 10^3/ul MPV 9.1 (7.4-10.4) fL Neut % (Auto) 61.2 % Lymph % (Auto) 30.4 % [place] % (Auto) 6.7 % Eos % (Auto) 1.2 % Baso % (Auto) 0.5 % Absolute Neuts (auto) 5.6 (1.5-7.7) 10^3/ul Absolute Lymphs (auto) 2.8 (1.0-4.8) 10^3/ul Absolute Monos (auto) 0.6 (0-0.8) 10^3/ul Absolute Eos (auto) 0.1 (0-0.6) 10^3/ul Absolute Basos (auto) 0 (0-0.2) 10^3/ul Absolute Nucleated RBC 0 10^3/ul Nucleated RBC % 0.2 INR (Anticoag Therapy) 1.03 H (0.77-1.02) APTT 32.4 (26.0-36.3) seconds D-Dimer, Quantitative 240 H (Less Than 230) ng/mL Sodium 137 (135-145) mmol/L Potassium 3.7 (3.5-5.0) mmol/L Chloride 107 (101-111) mmol/L Carbon Dioxide 25 (22-32) mmol/L Anion Gap 5 (2-11) mmol/L BUN 18 (6-24) mg/dL Creatinine 0.75 (0.51-0.95) mg/dL Est GFR ( Amer) 111.3 (>60) Est GFR (Non-Af Amer) 92.0 (>60) BUN/Creatinine Ratio 24.0 H (8-20) Glucose 99 (70-100) mg/dL Calcium 9.0 (8.6-10.3) mg/dL Total Bilirubin 0.70 (0.2-1.0) mg/dL AST 14 (13-39) U/L ALT 13 (7-52) U/L Alkaline Phosphatase 75 (34-104) U/L Troponin I 0.00 (<0.04) ng/mL Total Protein 7.3 (6.4-8.9) g/dL Albumin 4.3 (3.2-5.2) g/dL Globulin 3.0 (2-4) g/dL Albumin/Globulin Ratio 1.4 (1-3) Beta HCG, Quant Pending Result Diagrams: 02/15/18 04:16 02/15/18 04:16 Lab Statement: Any lab studies that have been ordered have been reviewed, and results considered in the medical decision making process. - Radiology CXR Radiology Interpretation Completed By: ED Physician - NEGATIVE. PENDING OFFICIAL REPORT. - CT CTA CHEST/THORAX CT Interpretation Completed By: Radiologist - No acute findings. No evidence of acute pulmonary embolus disease. No pulmonary consolidation, pleural effusion or pneumothorax. ED PHYSICIAN REVIEWED THIS RADIOLOGY REPORT. - EKG 0344 Cardiac Rate: NL - 74 BPM Summary of EKG Findings: NO ACUTE CHANGES. Chest Pain Course/Dx - Course Course Of Treatment: A 27 y/o female accompanied by a friend presents to the ED c/o left-sided chest pain. Currently, the patient still experiences chest pain, however, only when she takes deep breaths and moves. In the ED course, the patient has a pulse of 79 BPM, O2 saturation of 98%, and blood pressure of 134/ 91. According to the patient, she experiences chest pain from taking deep breaths and engages in any movement. The pain started on morning around 1000 which became worse. Some symptoms included cold sweats, lightheadedness and cough (resolved). She denies any nausea, vomiting, dizziness , or fever. No prior heart issues. No control pills. Palpation does not aggravate the symptoms. PMHx of asthma. An CTA Chest/Thorax revealed No acute findings. No evidence of acute pulmonary embolus disease. No pulmonary consolidation, pleural effusion or pneumothorax. A CXR revealed to be negative. An EKG revealed NSR 74 BPM, no acute changes. Patient will be discharged with a diagnosis of atypical chest pain. Patient is to follow up with PCP in 2-3 days. Patient is agreeable with this plan. - Chest Pain Differential Diagnosis/HQI/PQRI: Chest Wall, Lower Respiratory Infection, Pulmonary Embolism - Diagnoses Provider Diagnoses: Atypical chest pain Discharge - Sign-Out/Discharge Documenting (check all that apply): Patient Departure - DISCHARGE - Discharge Plan Condition: Stable Disposition: HOME Prescriptions: Ibuprofen TAB* [Motrin TAB* 600 MG] 600 mg PO Q8H PRN #15 tab MDD 3 PRN Reason: Pain Patient Education Materials: Chest Pain (ED) Referrals: [facility] [Outside] - 3 Days Additional Instructions: FOLLOW UP WITH PRIMARY CARE PROVIDER IN 2-3 DAYS. RETURN TO ED FOR ANY NEW OR WORSENING SYMPTOMS. - Billing Disposition and Condition Condition: STABLE Disposition: Home - Attestation Statements Document Initiated by Scribe: Yes Documenting Scribe: Shaheen Mendieta Provider For Whom Scribe is Documenting (Include Credential): Jeremy Sood MD Scribe Attestation: Shaheen Landry, scribed for Jeremy Sood MD on 02/15/18 at 0648. Scribe Documentation Reviewed: Yes Provider Attestation: The documentation as recorded by the Shaheen woody accurately reflects the service I personally performed and the decisions made by Jeremy fernandez MD Status of Scribe Document: Viewed
[2018-02-15] MEDS ORDERED: Iohexol 350* (CONTRAST) 500 ML MDV IV ONE (05:14)
[2018-02-15 07:08] VITALS: BP 140/97
== END 2018-02-15 07:07 | disposition home or self-care (01) ==
LOC: ED 03:28
DX: R07.89 Other chest pain (principal); R06.02 Shortness of breath; R42 Dizziness and giddiness; R05 Cough; Z72.0 Tobacco use
CPT/HCPCS: 36415; 71046; 71275; 80053; 83605; 84484; 84702; 85025; 85379; 85610; 85730; 93005; 99283; A9270-GY; Q9967